=== PATIENT | female | born 1945 | race Two or more races ===

== ENCOUNTER 2021-11-11 20:29 | Emergency (ER) | payer OTHER ==
[~2021-11-11] VITALS: Ht 162.6 cm; Wt 75.7 kg
[2021-11-11 22:31] LABS: Urine Bacteria NONE SEEN /hpf (None Seen); Urine Blood Negative /uL (Negative); Urine Specific Gravity 1.016 (1.001-1.035); Urine WBC 9 /hpf (0 - 5)
[2021-11-11 23:24] LABS: Basophils # (auto) 0.1 10 ^3/uL (0-0.2); Basophils % (auto) 0.6 % (0.0-2.0); Eosinophils # (auto) 0.2 10 ^3/uL (0-0.8); Eosinophils % (auto) 2.6 % (0.0-7.0); Hematocrit 41.9 % (36.0-46.0); Hemoglobin 14.1 g/dL (12.2-16.2); Lymphocytes # (auto) 2.5 10 ^3/uL (0.4-5.4); Lymphocytes % (auto) 27.5 % (10.0-50.0); Mean Corpuscular Hemoglobin 29.7 pg (28.0-32.0); Mean Corpuscular Hgb Conc. 33.6 g/dL (32.0-36.0); Mean Corpuscular Volume 88.5 fL (80.0-100.0); Monocytes # (auto) 0.8 10 ^3/uL (0-1.3); Neutrophils # (auto) 5.5 10 ^3/uL (1.6-8.6); Neutrophils % (auto) 60.3 % (37.0-80.0); Nucleated Red Blood Cells % 0.1 %; Red Blood Cells 4.73 10^6/uL (4.0-5.20); Red Cell Distribution Width 13.7 % (11.8-14.3)
[2021-11-11 23:45] LABS: Albumin 3.8 g/dL (3.4-5.0); BUN/Creatinine Ratio 31.2; Calcium 9.6 mg/dL (8.5-10.1); Potassium 4.7 mmol/L (3.5-5.1)
[2021-11-11 23:47] LABS: Bilirubin, Total 0.4 mg/dL (0.2-1.0); Total Protein 7.9 g/dL (6.4-8.2)
[2021-11-12 01:14] VITALS: BP 144/81
== END 2021-11-12 01:16 | disposition home or self-care (01) ==
LOC: ER 20:31
DX: R10.9 Unspecified abdominal pain (principal); I10 Essential (primary) hypertension; E11.9 Type 2 diabetes mellitus without complications
CPT/HCPCS: 36415; 74176; 80053; 81001; 85025

== ENCOUNTER 2021-11-19 01:56 | Inpatient (IN) | payer OTHER ==
[~2021-11-19] VITALS: Ht 162.6 cm; Wt 77.1 kg
[2021-11-19] MEDS ORDERED: ONDANSETRON HCL 4 MG/2 ML VIAL IV ONE ×2 (04:00→11:00)
[2021-11-19] MEDS ORDERED: SODIUM CHLORIDE 0.9% 1,000 ML IV ONE (04:00)
[2021-11-19] MEDS ORDERED: MORPHINE SULFATE 4 MG/ML SYR/VIAL IV ONE (04:00)
[2021-11-19 04:15] LABS: Basophils # (auto) 0 10 ^3/uL (0-0.2); Basophils % (auto) 0.4 % (0.0-2.0); Eosinophils # (auto) 0.2 10 ^3/uL (0-0.8); Eosinophils % (auto) 1.5 % (0.0-7.0); Hematocrit 44.7 % (36.0-46.0); Hemoglobin 14.7 g/dL (12.2-16.2); Lymphocytes # (auto) 1.6 10 ^3/uL (0.4-5.4); Lymphocytes % (auto) 13.6 % (10.0-50.0); Mean Corpuscular Hemoglobin 29.3 pg (28.0-32.0); Mean Corpuscular Volume 88.9 fL (80.0-100.0); Monocytes # (auto) 0.7 10 ^3/uL (0-1.3); Monocytes % (auto) 5.7 % (0.0-12.0); Neutrophils # (auto) 9.2 10 ^3/uL (1.6-8.6); Neutrophils % (auto) 78.8 % (37.0-80.0); Red Blood Cells 5.03 10^6/uL (4.0-5.20); Red Cell Distribution Width 14.2 % (11.8-14.3); White Blood Cell 11.7 10^3/uL (4.4-10.8)
[2021-11-19 04:34] LABS: Albumin 3.8 g/dL (3.4-5.0); Calcium 9.8 mg/dL (8.5-10.1); Potassium 5.3 mmol/L (3.5-5.1)
[2021-11-19 04:37] LABS: BUN/Creatinine Ratio 26.6
[2021-11-19 04:39] LABS: Bilirubin, Total 0.5 mg/dL (0.2-1.0); Total Protein 8.2 g/dL (6.4-8.2)
[2021-11-19 04:48] LABS: Urine Bacteria FEW /hpf (None Seen); Urine Blood Negative /uL (Negative); Urine Specific Gravity 1.022 (1.001-1.035); Urine WBC 4 /hpf (0 - 5)
[2021-11-19] MEDS ORDERED: SODIUM ZIRCONIUM CYCL 10 GM PAK PO ONE (10:30)
[2021-11-19] MEDS ORDERED: SODIUM BICARBONATE 8.4% INJ 50ML SYRINGE IV ONE (10:30)
[2021-11-19] MEDS ORDERED: ALBUTEROL SULF 2.5 MG/0.5ML(0.5%) NEB SOLN NEB ONE (10:30)
[2021-11-19] MEDS ORDERED: FUROSEMIDE 20 MG/2 ML VIAL IV ONE (10:30)
[2021-11-19] MEDS ORDERED: CALCIUM GLUC 1,000mg/50ml-NS 50 ML IV ONE (10:30)
[2021-11-19] MEDS ORDERED: InsuLIN REG 1unit/0.01ml Soln (100units/ml) IV ONE (10:30)
[2021-11-19] MEDS ORDERED: cefTRIAXone 1GM/50ML D5W 50 ML IV ONE ×2 (10:30→14:15)
[2021-11-19] MEDS ORDERED: DEXTROSE (50%) 50ML SYRG IV ONE (10:30)
[2021-11-19] MEDS ORDERED: MORPHINE SULFATE INJECTION 2 MG/ML SYRG IM ONE (11:00)
[2021-11-19] MEDS ORDERED: MORPHINE SULFATE INJECTION 2 MG/ML SYRG IV ONE (11:30)
[2021-11-19] MEDS ORDERED: NITROGLYCERIN 0.4 MG SL TAB SL PRN ×2 (13:15→14:15)
[2021-11-19] MEDS ORDERED: GASTROGRAFIN 120 ML SOL ONE (14:06)
[2021-11-19] MEDS ORDERED: MORPHINE SULFATE INJECTION 2 MG/ML SYRG IV PRN (14:15)
[2021-11-19] MEDS ORDERED: METOCLOPRAMIDE HCL 5MG/ml INJ 2ml VIAL IV PRN (14:15)
[2021-11-19] MEDS ORDERED: DOCUSATE SOD 100 MG CAP PO PRN (14:15)
[2021-11-19] MEDS ORDERED: PANTOPRAZOLE 40 MG/10 ML VIAL INJ IV ONE (14:15)
[2021-11-19] MEDS ORDERED: metroNIDAZOLE 500MG/100ML 100 ML IV ONE (14:15)
[2021-11-19] MEDS ORDERED: NIFEdipine ER 30 MG TAB PO ONE (14:15)
[2021-11-19] MEDS ORDERED: LORazepam 0.5 MG TAB PO PRN (14:15)
[2021-11-19] MEDS ORDERED: DEXTROSE (50%) 50ML SYRG IV PRN (14:15)
[2021-11-19] MEDS ORDERED: ALUM & MAG HYDROX-SIMETH LIQ(MAALOX) 30 ML PO PRN (14:15)
[2021-11-19 14:36] LABS: Cholesterol 165 mg/dL (< 200)
[2021-11-19 14:40] LABS: HDL Cholesterol 72 mg/dL (40-59); LDL Cholesterol 76 mg/dL (< 100); Triglycerides 100 mg/dL (< 150)
[2021-11-19 14:47] LABS: Potassium 5.3 mmol/L (3.5-5.1)
[2021-11-19 14:55] LABS: Alcohol, Urine < 3.0 mg/dL (0-10); Amphetamine Screen, Urine NEGATIVE (NEGATIVE); Barbiturate Scree,Urine NEGATIVE (NEGATIVE); Benzodiazephine Screen, Urine NEGATIVE (NEGATIVE); Cannabinoid Screen, Urine NEGATIVE (NEGATIVE); Cocaine Screen, Urine NEGATIVE (NEGATIVE); Opiate Scree,Urine NEGATIVE (NEGATIVE); Phencyclidine Screen, Urine NEGATIVE (NEGATIVE)
[2021-11-19] MEDS: D5W/SOD CHLO 0.9% 1,000 ML IV SCH (16:10)
[2021-11-19] MEDS: MORPHINE SULFATE INJECTION 2 MG/ML SYRG IV PRN ×2 (16:16→20:21)
[2021-11-19] MEDS: ACCU-CHEK COMFORT CURVE STRIP VI SCH ×2 (17:11→21:53)
[2021-11-19] MEDS: InsuLIN REG 1unit/0.01ml Soln (100units/ml) SC SCH ×2 (17:24→22:22)
[2021-11-19 18:50] VITALS: BP 125/72
[2021-11-19 20:00] VITALS: BP 134/71
[2021-11-19] MEDS: metroNIDAZOLE 500MG/100ML 100 ML IV SCH (21:53)
[2021-11-19 22:00] VITALS: BP 134/71
[2021-11-19] MEDS: APIXABAN 5 MG TAB PO SCH (22:12)
[2021-11-20] MEDS: MORPHINE SULFATE INJECTION 2 MG/ML SYRG IV PRN (03:20)
[2021-11-20] MEDS: D5W/SOD CHLO 0.9% 1,000 ML IV SCH ×2 (03:35→18:35)
[2021-11-20 05:00] VITALS: BP 127/79
[2021-11-20] MEDS: metroNIDAZOLE 500MG/100ML 100 ML IV SCH ×3 (06:12→22:01)
[2021-11-20 06:14] LABS: Basophils # (auto) 0 10 ^3/uL (0-0.2); Basophils % (auto) 0.2 % (0.0-2.0); Eosinophils # (auto) 0.1 10 ^3/uL (0-0.8); Eosinophils % (auto) 0.4 % (0.0-7.0); Hematocrit 44.3 % (36.0-46.0); Hemoglobin 14.6 g/dL (12.2-16.2); Lymphocytes # (auto) 1.3 10 ^3/uL (0.4-5.4); Lymphocytes % (auto) 10.2 % (10.0-50.0); Mean Corpuscular Hgb Conc. 32.9 g/dL (32.0-36.0); Mean Corpuscular Volume 88.2 fL (80.0-100.0); Monocytes % (auto) 7.7 % (0.0-12.0); Neutrophils # (auto) 10.7 10 ^3/uL (1.6-8.6); Neutrophils % (auto) 81.5 % (37.0-80.0); Nucleated Red Blood Cells % 0.2 %; Red Blood Cells 5.03 10^6/uL (4.0-5.20); White Blood Cell 13.2 10^3/uL (4.4-10.8)
[2021-11-20 06:26] LABS: Potassium 4.2 mmol/L (3.5-5.1)
[2021-11-20 06:28] LABS: INR 1.1 (0.9-1.15); Partial Thromboplastin Time 30.2 sec (23.6-33.0)
[2021-11-20 06:44] LABS: Albumin 3.6 g/dL (3.4-5.0); Bilirubin, Total 0.6 mg/dL (0.2-1.0); Calcium 9.2 mg/dL (8.5-10.1); Magnesium 3.3 mg/dL (1.6-2.6); Total Protein 8.4 g/dL (6.4-8.2); Uric Acid 9.1 mg/dL (2.6-6.0)
[2021-11-20] MEDS: ACCU-CHEK COMFORT CURVE STRIP VI SCH ×4 (06:48→22:02)
[2021-11-20] MEDS: InsuLIN REG 1unit/0.01ml Soln (100units/ml) SC SCH ×4 (06:49→22:00)
[2021-11-20] MEDS: cefTRIAXone 1GM/50ML D5W 50 ML IV SCH (08:14)
[2021-11-20 09:00] VITALS: BP 140/74
[2021-11-20] MEDS: PANTOPRAZOLE 40 MG/10 ML VIAL INJ IV SCH (09:13)
[2021-11-20] MEDS: APIXABAN 5 MG TAB PO SCH ×2 (09:13→22:01)
[2021-11-20] MEDS: NIFEdipine ER 30 MG TAB PO SCH ×2 (09:14→09:44)
[2021-11-20 13:00] VITALS: BP 142/68
[2021-11-20 17:00] VITALS: BP 147/76
[2021-11-20 22:00] VITALS: BP 155/86
[2021-11-21] MEDS: MORPHINE SULFATE INJECTION 2 MG/ML SYRG IV PRN (00:53)
[2021-11-21 05:30] VITALS: BP 142/81
[2021-11-21] MEDS: metroNIDAZOLE 500MG/100ML 100 ML IV SCH ×3 (05:46→21:26)
[2021-11-21] MEDS: D5W/SOD CHLO 0.9% 1,000 ML IV SCH ×2 (05:46→19:35)
[2021-11-21] MEDS: InsuLIN REG 1unit/0.01ml Soln (100units/ml) SC SCH ×4 (06:38→21:50)
[2021-11-21] MEDS: ACCU-CHEK COMFORT CURVE STRIP VI SCH ×3 (06:39→18:38)
[2021-11-21 08:42] VITALS: BP 153/71
[2021-11-21] MEDS: cefTRIAXone 1GM/50ML D5W 50 ML IV SCH (09:07)
[2021-11-21] MEDS: PANTOPRAZOLE 40 MG/10 ML VIAL INJ IV SCH (09:08)
[2021-11-21] MEDS: APIXABAN 5 MG TAB PO SCH ×2 (09:17→21:26)
[2021-11-21] MEDS: NIFEdipine ER 30 MG TAB PO SCH (09:18)
[2021-11-21 12:55] VITALS: BP 161/68
[2021-11-21] MEDS: ACETAMINOPHEN 325 MG TAB PO PRN ×2 (15:46→21:50)
[2021-11-21 17:36] VITALS: BP 167/49
[2021-11-21 22:00] VITALS: BP 157/48
[2021-11-22 05:00] VITALS: BP 132/82
[2021-11-22] MEDS: metroNIDAZOLE 500MG/100ML 100 ML IV SCH (05:47)
[2021-11-22] MEDS: InsuLIN REG 1unit/0.01ml Soln (100units/ml) SC SCH ×2 (07:00→11:30)
[2021-11-22] MEDS: cefTRIAXone 1GM/50ML D5W 50 ML IV SCH (09:09)
[2021-11-22] MEDS: APIXABAN 5 MG TAB PO SCH (09:09)
[2021-11-22] MEDS: PANTOPRAZOLE 40 MG/10 ML VIAL INJ IV SCH (09:09)
[2021-11-22] MEDS: D5W/SOD CHLO 0.9% 1,000 ML IV SCH (09:09)
[2021-11-22] MEDS: NIFEdipine ER 30 MG TAB PO SCH (09:10)
[2021-11-22 09:53] VITALS: BP 121/62
[2021-11-22] MEDS ORDERED: LEVO500T31 PO (11:25)
[2021-11-22] MEDS ORDERED: METR500T PO (11:25)
[2021-11-22] MEDS: ACCU-CHEK COMFORT CURVE STRIP VI SCH (12:17)
[2021-11-22 12:56] VITALS: BP 121/62
== END 2021-11-22 14:44 | disposition home or self-care (01) | DRG 389 ==
LOC: ER 01:56 → OVERFLOW 13:15 → WEST WING 18:08
PROVIDERS: ADMIT Hospitalist; ATTEND Family Medicine
PROC: 0D9670Z Drainage of Stomach with Drainage Device, Via Natural or Artificial Opening (ICD-10-PCS; principal; 2021-11-20)
DX: K56.600 Partial intestinal obstruction, unspecified as to cause (principal); I16.9 Hypertensive crisis, unspecified; N39.0 Urinary tract infection, site not specified; D72.829 Elevated white blood cell count, unspecified; E66.01 Morbid (severe) obesity due to excess calories; E78.5 Hyperlipidemia, unspecified; E87.5 Hyperkalemia; Z20.822 Contact with and (suspected) exposure to COVID-19; I10 Essential (primary) hypertension; E78.00 Pure hypercholesterolemia, unspecified; Z79.01 Long term (current) use of anticoagulants; Z82.49 Family history of ischemic heart disease and other diseases of the circulatory system; Z90.49 Acquired absence of other specified parts of digestive tract; Z68.29 Body mass index [BMI] 29.0-29.9, adult; Z95.1 Presence of aortocoronary bypass graft; Z95.3 Presence of xenogenic heart valve; Z88.1 Allergy status to other antibiotic agents; E11.65 Type 2 diabetes mellitus with hyperglycemia
CPT/HCPCS: 36415; 74018; 74176; 74250; 80053; 80061; 80307; 81001; 82962; 83036; 83690; 83735; 83880; 84100; 84132; 84443; 84484; 84550; 85025; 85379; 85610; 85730; 87040; 87086; 87426; 94640; 96361; 96365; 96367; 96368; 96375; 96376; C9113; G0378; J0696; J1815; J2405; J3490; J7042

== ENCOUNTER 2022-02-21 06:29 | Emergency (ER) | payer OTHER ==
[~2022-02-21] VITALS: Ht 162.6 cm; Wt 74.8 kg
[~2022-02-21 06:29] MED LIST: LEVO500T31 PO; METR500T PO
[2022-02-21 07:58] LABS: Urine Bacteria NONE SEEN /hpf (None Seen); Urine Blood Negative /uL (Negative); Urine Hyaline Cast FEW /lpf (0 - 2); Urine Specific Gravity 1.021 (1.001-1.035); Urine WBC 6 /hpf (0 - 5)
[2022-02-21 08:00] LABS: Basophils # (auto) 0.1 10 ^3/uL (0-0.2); Basophils % (auto) 0.9 % (0.0-2.0); Eosinophils # (auto) 0.2 10 ^3/uL (0-0.8); Eosinophils % (auto) 2.8 % (0.0-7.0); Hematocrit 41.3 % (36.0-46.0); Hemoglobin 14.2 g/dL (12.2-16.2); Lymphocytes # (auto) 2.2 10 ^3/uL (0.4-5.4); Lymphocytes % (auto) 25.2 % (10.0-50.0); Mean Corpuscular Hemoglobin 30.1 pg (28.0-32.0); Mean Corpuscular Hgb Conc. 34.4 g/dL (32.0-36.0); Mean Corpuscular Volume 87.5 fL (80.0-100.0); Monocytes # (auto) 0.8 10 ^3/uL (0-1.3); Monocytes % (auto) 9.2 % (0.0-12.0); Neutrophils # (auto) 5.5 10 ^3/uL (1.6-8.6); Neutrophils % (auto) 61.9 % (37.0-80.0); Nucleated Red Blood Cells % 0.1 %; Red Blood Cells 4.72 10^6/uL (4.0-5.20); Red Cell Distribution Width 14.1 % (11.8-14.3); White Blood Cell 8.9 10^3/uL (4.4-10.8)
[2022-02-21 08:07] LABS: Albumin 3.6 g/dL (3.4-5.0); BUN/Creatinine Ratio 22.4; Calcium 9.3 mg/dL (8.5-10.1)
[2022-02-21 08:16] LABS: Bilirubin, Total 0.6 mg/dL (0.2-1.0); Potassium 4.7 mmol/L (3.5-5.1)
[2022-02-21] MEDS ORDERED: HYDROmorphone HCL 2 MG/ML VL IV ONE (08:30)
[2022-02-21] MEDS ORDERED: ONDANSETRON HCL 4 MG/2 ML VIAL IV ONE (08:30)
[2022-02-21] MEDS ORDERED: IOHEXOL 300 MG/ML 100ML BOTTLE IJ ONE (08:38)
[2022-02-21] MEDS ORDERED: CIPR-173 PO (10:17)
[2022-02-21 10:30] VITALS: BP 134/68
== END 2022-02-21 10:52 | disposition home or self-care (01) ==
LOC: ER 06:29
DX: N39.0 Urinary tract infection, site not specified (principal); E11.9 Type 2 diabetes mellitus without complications; I10 Essential (primary) hypertension; Z90.49 Acquired absence of other specified parts of digestive tract; Z88.6 Allergy status to analgesic agent; Z88.8 Allergy status to other drugs, medicaments and biological substances
CPT/HCPCS: 36415; 71045; 74177; 80053; 81001; 83880; 84484; 85025; 87086; 93005; 96374; 96375; 99285; J1170; J2405; Q9967